=== PATIENT | female | born 1965 | race African-American/Black ===

== ENCOUNTER 2021-12-10 12:11 | Observation (INO) ==
[2021-12-10 12:17] VITALS: BMI 36.4
[2021-12-10] MEDS ORDERED: NS 1,000 ML IV 1,000 ML IV ONE ×2 (12:25→12:57)
[2021-12-10] MEDS ORDERED: ZOFRAN INJ 4 MG VIAL IVP ONE ×3 (12:25→19:33)
[2021-12-10] MEDS ORDERED: ZOFRAN INJ 4 MG VIAL ONE ×2 (12:56→19:37)
[2021-12-10] MEDS ORDERED: NS 1,000 ML IV 1,000 ML ONE (12:56)
[2021-12-10 13:05] LABS: BASOPHILS # (AUTO) 0.1 X10^3/uL (0.0-0.1); EOSINOPHILS # (AUTO) 0.1 x10^3/uL (0.0-0.2); EOSINOPHILS % (AUTO) 2.1 % (0.9-2.9); HEMATOCRIT 34.6 % (36.0-47.0); HEMOGLOBIN 11.4 g/dL (12.0-16.0); LYMPHOCYTES # (AUTO) 1.6 X10^3/uL (1.3-2.9); LYMPHOCYTES % (AUTO) 23.5 % (21.0-51.0); MEAN CORPUSCULAR HEMOGLOBIN 26.6 pg (27.0-34.0); MEAN CORPUSCULAR VOLUME 80.8 fL (80.0-100.0); MEAN PLATELET VOLUME 7.6 fL (7.4-11.0); MONOCYTES # (AUTO) 0.5 x10^3/uL (0.3-0.8); MONOCYTES % (AUTO) 7.2 % (0.0-13.0); NEUTROPHILS # (AUTO) 4.6 x10^3/uL (2.2-4.8); NEUTROPHILS % (AUTO) 66.2 % (42.0-75.0); RED BLOOD COUNT 4.28 X10^6/uL (3.5-5.4); RED CELL DISTRIBUTION WIDTH 15.2 % (11.6-16.5)
[2021-12-10 13:15] LABS: ALANINE AMINOTRANSFERASE 21 Units/L (12-78); ALBUMIN 3.6 g/dL (3.4-5.0); ALKALINE PHOSPHATASE 88 Units/L (46-116); ASPARTATE AMINO TRANSFERASE 12 Units/L (15-37); BLOOD UREA NITROGEN 21 mg/dL (7-18); CALCIUM 9.2 mg/dL (8.5-10.1); CARBON DIOXIDE 26.4 mmol/L (21-32); CHLORIDE 105 mmol/L (98-107); COR NA(FOR HYPERGLY) 140 mmol/L (136-145); CREATININE 0.79 mg/dL (0.55-1.02); SODIUM 139 mmol/L (136-145); TOTAL PROTEIN 7.7 g/dL (6.4-8.2); eGFR NON BLACK RACES > 60 (>60)
--- NOTE | 2021-12-10 13:23 | ED.ABDFE ---
HPI Time Seen Time Seen by Provider: 12/10/21 12:52 PCP Primary Care Physician: LAQUITA MCGOVENR HPI Comment HPI Comment: A 56 y/o female presenting with c/o Lt. sided abdominal pain onset at about 0800 hrs today. She has associated nausea, some vomiting but no fever or diarrhea. She recently travelled from [place] to [facility] for a family gathering. Complaint Chief Complaint:: PT REPORTS THAT AROUND 0900 SHE STARTED HAVING ABD PAINS AROUND HER [employer] TO HER BACK ( PTS PAIN IS DULL 10/10 ON PAIN SCALE, PT REORTS VOMIT TIMES 3 , PT HX OF DIVERTICULITIS BR Self Treatment fo Chief Complaint: PT WENT TO [facility] YESTERDAY AND THINKS SHE MAY HAVE EATING SOMETHING BAD ,BR COVID-19 Coronavirus risk:travel/contact w/high risk person: No Has patient experienced Coronavirus symptoms: No Reviewed Nurses Notes Review: Yes Source History Provided: Patient Mode of arrival Mode of Arrival: Wheelchair Timing Onset of Chief Complaint: 12/10/21 Duration Since Onset: Constant Location Location: LUQ and LLQ Severity Severity: Severe Quality Quality: Colicky and Other (Dull) Modifying factors Worsening Factors: Nothing Improving Factors: Nothing Associated signs and symptoms Associated Signs and Symptoms: Nausea and Vomiting PMH PMH Past Medical History: No Past Surgical History: Yes Surgical History: and Hysterectomy Family History History of Family Medical Conditions: No Social History Does patient currently use any type of tobacco product: No Have you used tobacco products in the last 12 months: No Type of Tobacco Use: None Does any household member use tobacco: No Alcohol Use: None Do you use any recreational Drugs:: No Lives Where: Home Travel Risk Coronavirus risk:travel/contact w/high risk person: No Has patient experienced Coronavirus symptoms: No Infectious screening In the last 2 months have you had wt loss of >10#?: NO Have you had fever, night sweats or hemotysis?: No Have you traveled outside the country in the last 6 months?: No Isolation: Standard ROS Review of Systems Constitutional: No Symptoms Reported Eyes: No Symptoms Reported ENTM: No Symptoms Reported Respiratoy: No Symptoms Reported Cardiovascular: No Symptoms Reported Gastrointestinal/Abdominal: Abdominal Pain, Nausea and Vomiting Genitourinary: No Symptoms Reported Neurological: No Symptoms Reported Musculoskeletal: No Symptoms Reported Integumentary: No Symptoms Reported Hematologic/Lymphatic: No Symptoms Reported Endocrine: No Symptoms Reported Psychiatric: No Symptoms Reported PE Vital Signs Vitals: Temperature 96.3 F Pulse Rate 69 Respiratory Rate 18 Blood Pressure 172/77 O2 Sat by Pulse Oximetry 99 General Limitations: No Limitations General Appearance: Alert and In Distress (pain related ) Head Head Exam: Normal Inspection, Atraumatic and Normocephalic Eyes Eye exam: Normal Appearance and EOMI ENT ENT Exam: Normal Exam, Normal Oropharynx, Normal External Ear Exam and Mucous Membranes Moist Neck Neck Exam: Normal Inspection, Full ROM and Trachea Midline Chest Chest Inspection: Normal Inspection and Symmetric Chest Wall Rise Respiratory Respiratory Exam: Normal Lung Sounds Bilat Cardiovascular Cardiovascular Exam: Regular Rate, Normal Rhythm, Normal Heart Sounds, +S1 and +S2 Abdominal Exam Abdominal Exam: Normal Inspection, Normal Bowel Sounds, Soft and Tenderness; negative Distention, Guarding, Rebound, Rigidity, Dimnished Bowel Sounds, Hyperactive Bowel Sounds, Hypoactive Bowel Sounds, Organomegaly, Trauma, Incision, Ascites, Mass, Bruit, Pulsatile Mass or Hernia Abdominal Tenderness: LUQ and LLQ Rectal Rectal Exam: Deferred Back Back Exam: Normal Inspection and Full ROM Extremeties Extremities Exam: Normal Inspection and Full ROM External Exam: Female: Deferred Neurologic Neurological Exam: Alert and Oriented X3 Psychiatric Psychiatric Exam: Normal Affect and Normal Mood Skin Skin Exam: Intact COURSE Treatment Treatment: Her test results were reviewed with her and her spouse. She had reveived a liter of NS, given analgesics Reevaluation 1st: Improved Education/Counseling Education/Counseling: Patient, Family, Education and Counseling Educated On: Treatment, Diagnosis, Prognosis and Needs for Follow Up ROR Labs Reviewed Result Diagrams: 12/10/21 12:36 12/10/21 12:36 Laboratory: WBC 7.0 X10^3/uL (3.6-10.0) 12/10/21 12:36 RBC 4.28 X10^6/uL (3.5-5.4) 12/10/21 12:36 Hgb 11.4 g/dL (12.0-16.0) L 12/10/21 12:36 Hct 34.6 % (36.0-47.0) L 12/10/21 12:36 MCV 80.8 fL (80.0-100.0) 12/10/21 12:36 MCH 26.6 pg (27.0-34.0) L 12/10/21 12:36 MCHC 33.0 g/dL (33.0-35.0) 12/10/21 12:36 RDW 15.2 % (11.6-16.5) 12/10/21 12:36 Plt Count 315 X10^3/uL (150.0-450.0) 12/10/21 12:36 MPV 7.6 fL (7.4-11.0) 12/10/21 12:36 Neut % (Auto) 66.2 % (42.0-75.0) 12/10/21 12:36 Lymph % (Auto) 23.5 % (21.0-51.0) 12/10/21 12:36 [place] % (Auto) 7.2 % (0.0-13.0) 12/10/21 12:36 Eos % (Auto) 2.1 % (0.9-2.9) 12/10/21 12:36 Baso % (Auto) 1.0 % (0.2-1.0) 12/10/21 12:36 Neut # (Auto) 4.6 x10^3/uL (2.2-4.8) 12/10/21 12:36 Lymph # (Auto) 1.6 X10^3/uL (1.3-2.9) 12/10/21 12:36 [place] # (Auto) 0.5 x10^3/uL (0.3-0.8) 12/10/21 12:36 Eos # (Auto) 0.1 x10^3/uL (0.0-0.2) 12/10/21 12:36 Baso # (Auto) 0.1 X10^3/uL (0.0-0.1) 12/10/21 12:36 Absolute Nucleated RBC 0.1 /100WBC 12/10/21 12:36 Sodium 139 mmol/L (136-145) 12/10/21 12:36 Corrected Sodium 140 mmol/L (136-145) 12/10/21 12:36 Potassium 3.9 mmol/L (3.5-5.1) 12/10/21 12:36 Chloride 105 mmol/L (98-107) 12/10/21 12:36 Carbon Dioxide 26.4 mmol/L (21-32) 12/10/21 12:36 BUN 21 mg/dL (7-18) H 12/10/21 12:36 Creatinine 0.79 mg/dL (0.55-1.02) 12/10/21 12:36 Est GFR (MDRD) Af Amer > 60 (>60) 12/10/21 12:36 Est GFR (MDRD) Non-Af > 60 (>60) 12/10/21 12:36 Glucose 132 mg/dL (65-99) H 12/10/21 12:36 Calcium 9.2 mg/dL (8.5-10.1) 12/10/21 12:36 Corrected Calcium TNP 12/10/21 12:36 Total Bilirubin 0.60 mg/dL (0.2-1.0) 12/10/21 12:36 AST 12 Units/L (15-37) L 12/10/21 12:36 ALT 21 Units/L (12-78) 12/10/21 12:36 Alkaline Phosphatase 88 Units/L (46-116) 12/10/21 12:36 Total Protein 7.7 g/dL (6.4-8.2) 12/10/21 12:36 Albumin 3.6 g/dL (3.4-5.0) 12/10/21 12:36 Globulin 4.1 g/dL (2.5-4.5) 12/10/21 12:36 Albumin/Globulin Ratio 0.9 Ratio (1.1-2.1) L 12/10/21 12:36 Amylase 53 Units/L (25-115) 12/10/21 12:36 Lipase 145 Units/L (73-393) 12/10/21 12:36 Specimen Type Clean catch urine 12/10/21 14:40 Urine Color Yellow (YELLOW) 12/10/21 14:40 Urine Appearance Clear (CLEAR) 12/10/21 14:40 Urine pH 7.0 (5.0 - 8.0) 12/10/21 14:40 Ur Specific [place] 1.010 (1.000-1.030) 12/10/21 14:40 Urine Protein Negative (NEGATIVE) 12/10/21 14:40 Urine Glucose (UA) Negative (NEGATIVE) 12/10/21 14:40 Urine Ketones Negative (NEGATIVE) 12/10/21 14:40 Urine Blood Negative (NEGATIVE) 12/10/21 14:40 Urine Nitrite Negative (NEGATIVE) 12/10/21 14:40 Urine Bilirubin Negative (NEGATIVE) 12/10/21 14:40 Urine Urobilinogen Normal (NORMAL) 12/10/21 14:40 Ur Leukocyte Esterase Negative (NEGATIVE) 12/10/21 14:40 Opioid Opioid Risk Tool Age ([place] box if 16-45): No History of Preadolescent Sexual Abuse: No Total: 0 Total Score Risk Category: Low Risk Copyright: Linwood BRAVO predicting aberrant behaviors Discharge Plan Diagnosis Discharge Problem: Diverticulitis Discharge Plan Patient Disposition: HOME, SELF-CARE Condition: Stable Prescriptions: New metronidazole 500 mg tablet 500 mg PO Q6H Qty: 28 0RF ciprofloxacin HCl 500 mg tablet 500 mg PO BID Qty: 14 0RF oxycodone-acetaminophen 5-325 mg tablet 1 tab PO Q6H MDD 4 PRNQty: 21 0RF Health Concerns: Post Hospitalization: new medications and changes needed to prevent readmission or further decline. Pt educated and given instructions on all concerns. Plan of Treatment: Continue with present treatment and follow up plan. Pt is to keep follow up appointment as instructed and take medications as ordered. Orders to Discharge Patient Discharge Orders: Discharge (Routine); Ordered 12/10/21 Ordered By: RADHA FAITH Follow ups/Referrals Follow ups/Referrals: Adrian PATRICIO [Primary Care Provider] - 3 days Instructions Instructions: Diverticulitis, Urbc-cn-Tikn Stand Alone Forms: Precautions for COVID19, [facility], Patient Portal, Social Distancing ADDITIONAL NOTES Additional Notes Additional Notes: Name: Chintan BLAKE#: [id number]: [id number]: [id number]: FLocation: EROrder Number(s): [id number](s):ABDOMEN/PELVIS W/O CON Ordering Physician: RADHA FAITH Primary Care: Adrian PATRICIO Service Date: 12/10/21 Service Time: 1305 HISTORY abdominal pains, umbilical pains STUDY ABDOMEN/PELVIS W/O CON COMPARISON None TECHNIQUE Multiple CT axial images of the abdomen and pelvis were obtained without IV contrast. Coronal and sagittal images were reconstructed. Dose reduction techniques included Automated Exposure Control (AEC) and adjustment of mA and kV. FINDINGS There are numerous diverticula in the left colon. There is 1 segment which might have edema around it suggesting acute diverticulitis. The finding is very subtle. Findings could be from a prior bout of diverticulitis however. There is no bowel obstruction or pneumoperitoneum. The lung bases are clear. Heart size is normal. Liver, gallbladder, spleen, adrenal glands, and pancreas are unremarkable. No abnormal calcifications are present in the kidneys, ureters, or urinary bladder.The kidneys have normal size and shape. There is no hydronephrosis or significant perirenal edema. The bladder is normally distended. It has no wall thickening or perivesical edema. Degenerative changes are present in the spine. Tiny umbilical hernia contains fat. IMPRESSION 1. Findings suspicious for left-sided acute diverticulitis Electronically signed by: Jesus Chandler (Dec 10, 2021 14:16:07) Report Electronically signed: 12/10/21 2623 CC: Radha Faith
[2021-12-10] MEDS ORDERED: MORPHINE SULFATE INJ 2 MG INJ IVP ONE (13:24)
[2021-12-10 13:32] LABS: AMYLASE 53 Units/L (25-115); LIPASE 145 Units/L (73-393)
[2021-12-10] MEDS ORDERED: COMPAZINE INJ IVP ONE (14:00)
[2021-12-10] MEDS ORDERED: MORPHINE SULFATE INJ 2 MG INJ ONE (14:03)
[2021-12-10] MEDS ORDERED: COMPAZINE INJ ONE (14:03)
--- NOTE | 2021-12-10 14:17 | CT ---
HISTORYabdominal pains, umbilical painsSTUDYABDOMEN/PELVIS W/O CONCOMPARISONNoneTECHNIQUEMultiple CT axial images of the abdomen and pelvis were obtained without IV contrast. Coronal and sagittal images were reconstructed. Dose reduction techniques included Automated Exposure Control (AEC) and adjustment of mA and kV.FINDINGSThere are numerous diverticula in the left colon. There is 1 segment which might have edema around it suggesting acute diverticulitis. The finding is very subtle. Findings could be from a prior bout of diverticulitis however.There is no bowel obstruction or pneumoperitoneum.The lung bases are clear. Heart size is normal.Liver, gallbladder, spleen, adrenal glands, and pancreas are unremarkable.No abnormal calcifications are present in the kidneys, ureters, or urinary bladder.The kidneys have normal size and shape. There is no hydronephrosis or significant perirenal edema. The bladder is normally distended. It has no wall thickening or perivesical edema.Degenerative changes are present in the spine. Tiny umbilical hernia contains fat.IMPRESSION1. Findings suspicious for left-sided acute diverticulitisElectronically signed by: Jesus Chandler (Dec 10, 2021 14:16:07)
[2021-12-10] MEDS ORDERED: CIPRO TAB 500 MG PO ONE ×2 (15:04→15:29)
[2021-12-10] MEDS ORDERED: FLAGYL IV PREMIX 500 MG BAG 500 MG/100 ML BAG IV SCH (15:05)
[2021-12-10 15:19] LABS: BILIRUBIN,URINE NEGATIVE (NEGATIVE); BLOOD/HEMOGLOBIN,URINE NEGATIVE (NEGATIVE); GLUCOSE, URINE NEGATIVE (NEGATIVE); KETONES,URINE NEGATIVE (NEGATIVE); LEUKOCYTE ESTERASE ,URINE NEGATIVE (NEGATIVE); NITRITES,URINE NEGATIVE (NEGATIVE); PROTEIN,URINE NEGATIVE (NEGATIVE); UROBILINOGEN,URINE NORMAL (NORMAL)
[2021-12-10 15:21] LABS: APPEARANCE,URINE CLEAR (CLEAR); COLOR,URINE YELLOW (YELLOW)
[2021-12-10] MEDS ORDERED: FLAGYL IV PREMIX 500 MG BAG 500 MG/100 ML BAG IV ONE (15:29)
[2021-12-10] MEDS: NS 1,000 ML IV 1,000 ML IV SCH (20:04)
[2021-12-10] MEDS: FLAGYL IV PREMIX 500 MG BAG 500 MG/100 ML BAG IV SCH (20:04)
[2021-12-10] MEDS: MORPHINE SULFATE INJ 2 MG INJ IVP PRN (20:56)
[2021-12-11] MEDS: ZOFRAN INJ 4 MG VIAL IVP PRN ×2 (01:30→08:56)
[2021-12-11] MEDS: FLAGYL IV PREMIX 500 MG BAG 500 MG/100 ML BAG IV SCH ×4 (02:11→21:24)
[2021-12-11] MEDS: NS 1,000 ML IV 1,000 ML IV SCH ×4 (04:19→23:30)
[2021-12-11 06:18] LABS: BLOOD UREA NITROGEN 13 mg/dL (7-18); CALCIUM 8.8 mg/dL (8.5-10.1); CARBON DIOXIDE 25.1 mmol/L (21-32); CHLORIDE 102 mmol/L (98-107); COR NA(FOR HYPERGLY) 137 mmol/L (136-145); CREATININE 0.67 mg/dL (0.55-1.02); SODIUM 136 mmol/L (136-145); eGFR NON BLACK RACES > 60 (>60)
[2021-12-11 06:22] LABS: BASOPHILS # (AUTO) 0.1 X10^3/uL (0.0-0.1); HEMATOCRIT 31.1 % (36.0-47.0); HEMOGLOBIN 10.5 g/dL (12.0-16.0); LYMPHOCYTES % (AUTO) 12.7 % (21.0-51.0); MEAN CORPUSCULAR HEMOGLOBIN 27.1 pg (27.0-34.0); MEAN CORPUSCULAR HGB CONC 33.7 g/dL (33.0-35.0); MEAN CORPUSCULAR VOLUME 80.4 fL (80.0-100.0); MEAN PLATELET VOLUME 7.8 fL (7.4-11.0); MONOCYTES # (AUTO) 0.4 x10^3/uL (0.3-0.8); MONOCYTES % (AUTO) 5.3 % (0.0-13.0); NEUTROPHILS # (AUTO) 6.4 x10^3/uL (2.2-4.8); RED BLOOD COUNT 3.87 X10^6/uL (3.5-5.4); RED CELL DISTRIBUTION WIDTH 15.2 % (11.6-16.5); WHITE BLOOD COUNT 7.9 X10^3/uL (3.6-10.0)
[2021-12-11 06:47] LABS: ALANINE AMINOTRANSFERASE 19 Units/L (12-78); ALBUMIN 3.2 g/dL (3.4-5.0); ALKALINE PHOSPHATASE 81 Units/L (46-116); ASPARTATE AMINO TRANSFERASE 11 Units/L (15-37); COR CA(FOR HYPOALB) 9.4 mg/dL (8.5-10.1); TOTAL PROTEIN 7.1 g/dL (6.4-8.2)
[2021-12-11] MEDS ORDERED: POTASSIUM CHL 60 MEQ/NS 0.45% 500 ML IV PRN (07:00)
[2021-12-11] MEDS ORDERED: MICRO K EXTEN CAP 10 MEQ PO PRN (07:00)
[2021-12-11] MEDS ORDERED: K-DUR TAB 20 MEQ PO PRN (07:00)
[2021-12-11] MEDS ORDERED: POTASSIUM CHLORIDE LIQ 20 MEQ UDC PO PRN (07:00)
[2021-12-11] MEDS ORDERED: KLOR-CON PO PRN (07:00)
[2021-12-11] MEDS ORDERED: POTASSIUM CHL 40 MEQ/NS 0.45% 500 ML IV PRN (07:00)
[2021-12-11] MEDS: CIPRO TAB 500 MG PO SCH ×2 (08:56→21:23)
[2021-12-11] MEDS: MAGNESIUM SULFATE 1 GRAM/100 mL PREMIX 1 G/100 ML BAG IV PRN ×2 (10:13→11:07)
[2021-12-11] MEDS: K-RIDER 10 MEQ/NS 100 ML 10 MEQ/100 ML BAG IV PRN ×2 (14:02→16:15)
--- NOTE | 2021-12-11 17:23 | DR.H&P ---
H&P History & Physical for Day of: H&P Date: 12/10/21 Chief Complaint Chief Complaint: Abdominal pain with nausea and vomiting Allergies Allergies Allergy/AdvReac Type Severity Reaction Status Date / Time codeine Allergy Verified 12/10/21 12:12 History of Present Illness History of Present Illness: This is a 56-year-old black female who presented to the emergency department with complaints of abdominal pain that started about 8 to 9:00 AM this morning. Pain got worse started radiating through to her back and left lower quadrant. Later on associated with nausea and vomiting but no diarrhea. She denies any melena and hematochezia. She does report a history of diverticulosis with a history of diverticular attacks in the past requiring antibiotics. She is from [place] near the [facility] and has been of a here in [place], [place] visiting family for 11 December weekend holiday. Past Medical History Past Medical History: Dyslipidemia and Hypertension Past Surgical History Surgical History: , Hysterectomy and Ortho Surgery Social History Does patient currently use any type of tobacco product: No Have you used tobacco products in the last 12 months: No Type of Tobacco Use: None Does any household member use tobacco: No Alcohol Use: None Drug Use: None Medications Home Medications: codeine Allergy (Verified 12/10/21 12:12) CONTINUE taking the following medications amlodipine 5 mg tablet 5 mg PO QDAY 12/11/21 [History] atorvastatin 20 mg tablet 20 mg PO HS 12/11/21 [History] docusate sodium 100 mg capsule (Colace) 100 mg PO BID 12/11/21 [History] gabapentin 100 mg capsule 100 mg PO HS 12/11/21 [History] ibuprofen 800 mg tablet 800 mg PO TID PRN 12/11/21 [History] linaclotide 290 mcg capsule (Linzess) 290 mcg PO DAILY 12/11/21 [History] ondansetron 8 mg disintegrating tablet 8 mg PO Q8H 12/11/21 [History] oxycodone-acetaminophen 7.5 mg-325 mg tablet 1 tab PO Q6H PRN 12/11/21 [History] Labs Result Diagrams: 12/11/21 05:47 12/11/21 11:40 Labs: Laboratory WBC 7.9 X10^3/uL (3.6-10.0) 12/11/21 05:47 RBC 3.87 X10^6/uL (3.5-5.4) 12/11/21 05:47 Hgb 10.5 g/dL (12.0-16.0) L 12/11/21 05:47 Hct 31.1 % (36.0-47.0) L 12/11/21 05:47 MCV 80.4 fL (80.0-100.0) 12/11/21 05:47 MCH 27.1 pg (27.0-34.0) 12/11/21 05:47 MCHC 33.7 g/dL (33.0-35.0) 12/11/21 05:47 RDW 15.2 % (11.6-16.5) 12/11/21 05:47 Plt Count 304 X10^3/uL (150.0-450.0) 12/11/21 05:47 MPV 7.8 fL (7.4-11.0) 12/11/21 05:47 Neut % (Auto) 81.0 % (42.0-75.0) H 12/11/21 05:47 Lymph % (Auto) 12.7 % (21.0-51.0) L 12/11/21 05:47 [place] % (Auto) 5.3 % (0.0-13.0) 12/11/21 05:47 Eos % (Auto) 0.0 % (0.9-2.9) L 12/11/21 05:47 Baso % (Auto) 1.0 % (0.2-1.0) 12/11/21 05:47 Neut # (Auto) 6.4 x10^3/uL (2.2-4.8) H 12/11/21 05:47 Lymph # (Auto) 1.0 X10^3/uL (1.3-2.9) L 12/11/21 05:47 [place] # (Auto) 0.4 x10^3/uL (0.3-0.8) 12/11/21 05:47 Eos # (Auto) 0.0 x10^3/uL (0.0-0.2) 12/11/21 05:47 Baso # (Auto) 0.1 X10^3/uL (0.0-0.1) 12/11/21 05:47 Absolute Nucleated RBC 0.1 /100WBC 12/11/21 05:47 Sodium 136 mmol/L (136-145) 12/11/21 05:47 Corrected Sodium 137 mmol/L (136-145) 12/11/21 05:47 Potassium 3.5 mmol/L (3.5-5.1) 12/11/21 11:40 Chloride 102 mmol/L (98-107) 12/11/21 05:47 Carbon Dioxide 25.1 mmol/L (21-32) 12/11/21 05:47 BUN 13 mg/dL (7-18) 12/11/21 05:47 Creatinine 0.67 mg/dL (0.55-1.02) 12/11/21 05:47 Est GFR (MDRD) Af Amer > 60 (>60) 12/11/21 05:47 Est GFR (MDRD) Non-Af > 60 (>60) 12/11/21 05:47 Glucose 129 mg/dL (65-99) H 12/11/21 05:47 Calcium 8.8 mg/dL (8.5-10.1) 12/11/21 05:47 Corrected Calcium 9.4 mg/dL (8.5-10.1) 12/11/21 05:47 Magnesium 1.6 mg/dL (1.7-2.9) L 12/11/21 05:47 Total Bilirubin 0.90 mg/dL (0.2-1.0) 12/11/21 05:47 AST 11 Units/L (15-37) L 12/11/21 05:47 ALT 19 Units/L (12-78) 12/11/21 05:47 Alkaline Phosphatase 81 Units/L (46-116) 12/11/21 05:47 Total Protein 7.1 g/dL (6.4-8.2) 12/11/21 05:47 Albumin 3.2 g/dL (3.4-5.0) L 12/11/21 05:47 Globulin 3.9 g/dL (2.5-4.5) 12/11/21 05:47 Albumin/Globulin Ratio 0.8 Ratio (1.1-2.1) L 12/11/21 05:47 Amylase 53 Units/L (25-115) 12/10/21 12:36 Lipase 145 Units/L (73-393) 12/10/21 12:36 Specimen Type Clean catch urine 12/10/21 14:40 Urine Color Yellow (YELLOW) 12/10/21 14:40 Urine Appearance Clear (CLEAR) 12/10/21 14:40 Urine pH 7.0 (5.0 - 8.0) 12/10/21 14:40 Ur Specific [place] 1.010 (1.000-1.030) 12/10/21 14:40 Urine Protein Negative (NEGATIVE) 12/10/21 14:40 Urine Glucose (UA) Negative (NEGATIVE) 12/10/21 14:40 Urine Ketones Negative (NEGATIVE) 12/10/21 14:40 Urine Blood Negative (NEGATIVE) 12/10/21 14:40 Urine Nitrite Negative (NEGATIVE) 12/10/21 14:40 Urine Bilirubin Negative (NEGATIVE) 12/10/21 14:40 Urine Urobilinogen Normal (NORMAL) 12/10/21 14:40 Ur Leukocyte Esterase Negative (NEGATIVE) 12/10/21 14:40 SARS-CoV-2 (PCR) Negative (NEGATIVE) 12/10/21 18:14 Review of Systems Constitutional: No Symptoms Reported Eyes: No Symptoms Reported ENT: No Symptoms Reported Respiratory: No Symptoms Reported Cardiovascular: No Symptoms Reported Gastrointestinal: Nausea, Vomiting and Abdominal Pain Genitourinary: No Symptoms Reported Musculoskeletal: No Symptoms Reported Skin: No Symptoms Reported Neurological: No Symptoms Reported Physical Exam Vital Signs: Temperature 99.1 F Pulse Rate [Left Brachial] 70 Pulse Rate 69 Respiratory Rate 18 Blood Pressure [Left Arm] 167/75 Blood Pressure 172/77 O2 Sat by Pulse Oximetry 96 Oriented: Normal Eyes: Normal Ear: Normal Nose: Normal Throat: Normal Respiratory: Clear Throughout Cardiovascular: Normal Auscultation: Bowel Sounds: Normal Palpation: Normal Tenderness: LUQ, LLQ and Moderate Skin: Normal Musculoskeletal: Normal Psychiatric: Normal Mood Description: Calm Affect: Normal Speech Pattern: Clear and Appropriate Assessment/Plan (1) Diverticulitis: Status: Acute Plan: Continue IV ciprofloxacin and metronidazole. Will advance diet as t olerated (2) Essential hypertension: Status: Acute Plan: I will restart the patient's amlodipine 5 mg daily. (3) Hypercholesteremia: Status: Acute Plan: I am going to hold the patient's atorvastatin at this time. Review H&P Reviewed: Yes Patient was examined?: Yes
[2021-12-11] MEDS ORDERED: PERCOCET TAB 5/325 MG PO PRN (17:41)
[2021-12-11] MEDS ORDERED: ROXICODONE TAB 5 MG PO PRN (17:42)
[2021-12-11] MEDS: MORPHINE SULFATE INJ 2 MG INJ IVP PRN (17:44)
[2021-12-11] MEDS: NORVASC TAB 5 MG PO SCH (18:09)
[2021-12-11] MEDS ORDERED: NEURONTIN CAP 100 MG PO SCH (21:00)
[2021-12-11] MEDS: COLACE CAP 100 MG PO SCH (21:24)
[2021-12-12] MEDS: FLAGYL IV PREMIX 500 MG BAG 500 MG/100 ML BAG IV SCH ×2 (02:51→08:42)
[2021-12-12] MEDS: MORPHINE SULFATE INJ 2 MG INJ IVP PRN (03:00)
[2021-12-12] MEDS: NS 1,000 ML IV 1,000 ML IV SCH ×2 (05:20→08:47)
[2021-12-12 06:15] LABS: BASOPHILS # (AUTO) 0.1 X10^3/uL (0.0-0.1); BASOPHILS % (AUTO) 1.3 % (0.2-1.0); EOSINOPHILS # (AUTO) 0.1 x10^3/uL (0.0-0.2); EOSINOPHILS % (AUTO) 1.1 % (0.9-2.9); HEMATOCRIT 33.3 % (36.0-47.0); LYMPHOCYTES # (AUTO) 2.7 X10^3/uL (1.3-2.9); LYMPHOCYTES % (AUTO) 30.4 % (21.0-51.0); MEAN CORPUSCULAR HEMOGLOBIN 26.7 pg (27.0-34.0); MEAN CORPUSCULAR HGB CONC 33.1 g/dL (33.0-35.0); MEAN CORPUSCULAR VOLUME 80.8 fL (80.0-100.0); MEAN PLATELET VOLUME 7.9 fL (7.4-11.0); NEUTROPHILS % (AUTO) 56.2 % (42.0-75.0); RED BLOOD COUNT 4.13 X10^6/uL (3.5-5.4); RED CELL DISTRIBUTION WIDTH 15.3 % (11.6-16.5); WHITE BLOOD COUNT 8.9 X10^3/uL (3.6-10.0)
[2021-12-12 06:33] LABS: ALANINE AMINOTRANSFERASE 22 Units/L (12-78); ALBUMIN 3.3 g/dL (3.4-5.0); ALKALINE PHOSPHATASE 78 Units/L (46-116); ASPARTATE AMINO TRANSFERASE 20 Units/L (15-37); BLOOD UREA NITROGEN 12 mg/dL (7-18); CALCIUM 8.7 mg/dL (8.5-10.1); CARBON DIOXIDE 26.4 mmol/L (21-32); CHLORIDE 108 mmol/L (98-107); COR CA(FOR HYPOALB) 9.3 mg/dL (8.5-10.1); CREATININE 0.71 mg/dL (0.55-1.02); MAGNESIUM 2.1 mg/dL (1.7-2.9); SODIUM 144 mmol/L (136-145); eGFR NON BLACK RACES > 60 (>60)
[2021-12-12] MEDS: NORVASC TAB 5 MG PO SCH (08:42)
[2021-12-12] MEDS: COLACE CAP 100 MG PO SCH (08:42)
[2021-12-12] MEDS: CIPRO TAB 500 MG PO SCH (08:42)
[2021-12-12 08:48] VITALS: BP 130/65
== END 2021-12-12 11:22 | disposition home or self-care (01) ==
LOC: ER 12:11 → MED/SURG 12:11 → ER 16:49 → MED/SURG 19:50
PROVIDERS: ADMIT Family Medicine; ATTEND Family Medicine
DX: R11.2 Nausea with vomiting, unspecified; R73.09 Other abnormal glucose; K57.32 Diverticulitis of large intestine without perforation or abscess without bleeding; Z79.899 Other long term (current) drug therapy; I10 Essential (primary) hypertension; R10.32 Left lower quadrant pain; E78.00 Pure hypercholesterolemia, unspecified; Z20.822 Contact with and (suspected) exposure to COVID-19